=== PATIENT | female | born 2000 | race Caucasian/White ===

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

== ENCOUNTER 2024-07-08 09:36 | Inpatient (IN) | payer MEDICAID ==
[~2024-07-08] VITALS: Ht 170.2 cm; Wt 72.7 kg
[2024-07-08] VITALS (51 sets, daily range): BP systolic 72–135; BP diastolic 37–99; PULSE 69–99; TEMP 98.4–98.7
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
[2024-07-08] MEDS ORDERED: PRENATAL (09:59)
--- NOTE | 2024-07-08 10:15 | NUR ---
PLAN PER IS TO INDUCE LABOR OR PERFORM C/S FOR THIS PATIENT. DISCUSSED PLAN WITH PATIENT WHO WAS TEARFUL SHE DIDN'T UNDERSTAND WHAT WAS GOING ON. THIS RN DISCUSSED THE LOW RA, PATIENT VERBALIZED UNDERSTANDING. PT AGREES TO ADMISSION TO HOSPITAL AND WILL DECIDE WHAT PLAN TO MOVE FORWARD WITH AFTER ARRIVES TO DISCUSS THE RISKS AND BENEFITS WITH PATIENT. IV STARTED, LABS DRAWN FROM IV START AND SENT TO LAB, 1L OF LR BOLUSING FOR POTENTIAL C/S, SVE FT/80/-2. ADMISSION INTAKE COMPLETED, WILL HAVE PATIENT SIGN CONSENT FOR SURGERY OR PROCEDURE AFTER ARRIVES AND THE DECISION IS MADE. EFM IS CATEGORY 1 WITH ACCELS AND NO DECELS, BASELINE OF 125.
[2024-07-08] MEDS ORDERED: LR 1,000 ML IV PRN ×2 (10:30→19:45)
[2024-07-08] MEDS ORDERED: LR 1,000 ML IV SCH ×2 (10:30→11:45)
[2024-07-08 11:12] LABS: BASO # 0.1 K/mm3 (0.0-0.2); BASO % 0.6 % (0.0-2.0); EOS # 0.2 K/mm3 (0.0-0.7); EOS % 1.5 % (0.0-4.0); GRAN # 7.2 K/mm3 (1.4-6.5); GRAN % 72.4 % (42.2-75.2); HEMOGLOBIN 12.6 g/dl (12.5-16.0); LYMPH # 1.6 K/mm3 (1.2-3.4); LYMPH % 15.6 % (20.0-51.0); MEAN CELL VOLUME 89 fl (80.0-100.0); MEAN CORPUSCULAR HEMOGLOBIN 31 pg (27-31); MEAN CORPUSCULAR HGB CONC 34 g/dl (33.0-37.0); MEAN PLATELET VOLUME 11.9 fl (7.4-10.4); MONO # 0.9 K/mm3 (0.1-0.6); MONO % 8.7 % (1.7-9.3); PLATELET COUNT 169 K/mm3 (130-400); RED BLOOD COUNT 4.12 M/mm3 (4.10-5.30)
[2024-07-08 11:36] LABS: HEMATOCRIT 36.8 % (37.0-47.0)
[2024-07-08] MEDS ORDERED: miSOPROStol 25 MCG (1/4th of 100 MCG) TAB VG SCH (11:45)
[2024-07-08] MEDS ORDERED: LR & Oxytocin 500 ML IV SCH (11:45)
[2024-07-08] MEDS ORDERED: Terbutaline 1 MG/ML 1 ML AMP SQ PRN (11:45)
[2024-07-08 12:38] LABS: TRICYCLIC ANTIDEPRESS URINE NEGATIVE (NEGATIVE)
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
[2024-07-08] MEDS ORDERED: NS 30 ML IV ONE (18:44)
[2024-07-08] MEDS ORDERED: Oxytocin 10 UNITS/ML VIAL ONE (18:44)
[2024-07-08] MEDS ORDERED: Ketorolac 30 MG/ML VIAL ONE (18:44)
[2024-07-08] MEDS ORDERED: dexAMETHasone 10 MG/ML VIAL ONE (18:44)
[2024-07-08] MEDS ORDERED: Ondansetron 4 MG/2 ML VIAL ONE (18:44)
[2024-07-08] MEDS ORDERED: Phenylephrine 10 MG/ML VIAL ONE ×2 (18:45→18:48)
--- NOTE | 2024-07-08 18:49 | NUR ---
1810: AT BEDSIDE DISCUSSING RISKS/BENEFIT OF CONTINUED INDUCTION VS. C/S. OPPORTUNITY FOR QUESTIONS ASKED AND ANSWERED. PT AGREES TO MOVE FORWARD WITH A C/S. GUSTAVO MAGALLON IS AT BEDSIDE WITH THIS RN AND . BEDSIDE REPORT IS GIVEN, AND PT BEGINS TO BE PREPPED FOR C/S. ÁNGEL BROWN IS NOTIFIED OF PT DESIRE TO PROCEED WITH C/S. 1830: PT IS PREPPED AND READY TO GO BACK FOR C/S BY GUSTAVO MAGALLON AND GUSTAVO FALCON. ÁNGEL BROWN AT BEDSIDE TO DISCUSS PLANS FOR ANESTHESIA. 1849: PT AMBULATES FROM LR5 TO OR FOR C/S.
[2024-07-08] MEDS ORDERED: EPINEPHrine 1 MG/1 ML Ampule ONE (19:21)
[2024-07-08] MEDS ORDERED: Naloxone 0.4 MG/ML VIAL IV PRN (19:45)
[2024-07-08] MEDS ORDERED: Tdap Vaccine 0.5 ML SYRINGE IM SCH (19:45)
[2024-07-08] MEDS ORDERED: Measles/Mumps/Rubella Virus Vaccine Live w Diluent 0.5 ML VIAL SQ SCH (19:45)
[2024-07-08] MEDS ORDERED: Magnes Hydrox (MOM) 80 MG/ML 30 ML CUP PO PRN (19:45)
[2024-07-08] MEDS ORDERED: Acetaminophen 500 MG TAB PO SCH (19:45)
[2024-07-08] MEDS ORDERED: Ondansetron 4 MG/2 ML VIAL IV PRN (19:45)
[2024-07-08] MEDS ORDERED: oxyCODONE 5 MG TAB PO PRN (19:45)
[2024-07-08] MEDS ORDERED: Loratadine 10 MG TAB PO PRN (19:45)
[2024-07-08] MEDS ORDERED: traZODone 50 MG TAB PO PRN (21:00)
[2024-07-09] MEDS ORDERED: Ibuprofen 800 MG TAB PO SCH (01:39)
[2024-07-09 04:30] VITALS: BP 104/55; PULSE 80; TEMP 98.2
[2024-07-09] MEDS ORDERED: Sennosides/Docusate 8.6-50 MG TAB PO SCH (08:00)
[2024-07-09 08:40] VITALS: BP 113/77; PULSE 79
[2024-07-09] MEDS ORDERED: Prenatal Vitamins/Iron/FA TAB PO SCH (09:00)
[2024-07-09] MEDS ORDERED: Morphine 4 MG/ML VIAL IV PRN (10:00)
--- NOTE | 2024-07-09 10:08 | NUR ---
Initial visit attempt; Family resting, Asphalt Worker left card offering Congratulations and God's blessings for the of their son and information regarding the availability of Spiritual Care at [facility].
--- NOTE | 2024-07-09 13:53 | NUR ---
PT DOES NOT HAVE AN INCENTIVE SPIROMETER IN HER ROOM. DECLINES WANTING ONE.
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
[2024-07-09 17:00] VITALS: BP 117/68; PULSE 74
--- NOTE | 2024-07-09 18:40 | NUR ---
Note patient tearful at this time. When asked if everything is okay, patient significant other answers, "It's fine. She just needs to relax." Note patient mother out to nurse's station and tells this information writer patient significant other just told her she needed to stop eating because she is no longer eating for two, and that's why she is crying.
[2024-07-09 18:45] VITALS: BP 105/65; PULSE 92; TEMP 97.4
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
--- NOTE | 2024-07-09 19:51 | NUR ---
Patient mother tells this medical underwriter patient did not want to put father of baby on certificiate, as they are not . States father of baby grabbed the certificate first thing and started filling it out. Also reports patient wanted to name her baby Naresh, but father of baby was not agreeable to that.
--- NOTE | 2024-07-09 23:15 | NUR ---
Patient significant other off of unit at this time. This tag writer in to speak with patient. Encouraged that we are her safety net here. This tag writer asks if she feels she needs to create a safe word or safe phrase to clear the room. Patient declines. States, "He just made a stupid comment earlier about me eating too much and that's why I was crying. Sometimes my mom and Bernard just get into it and that makes it extra stressful for me." This tag writer tells patient will look for a resource/hotline for her to discreetly put in her purse in case she needs it outside of hospital.
[2024-07-10 01:59] VITALS: BP 109/64; PULSE 83; TEMP 98.2
--- NOTE | 2024-07-10 06:20 | NUR ---
REPORT FROM GUSTAVO ADAMS. INFORMED OF PATIENT CONCERNS AND WILL ATTEMPT TO TALK WITH THE PATIENT ALONE. SOCIAL WORK IS NOTIFIED OF ISSUES THAT AROSE DURING THE NIGHT.
[2024-07-10 09:03] VITALS: BP 109/74; PULSE 78
[2024-07-10] MEDS ORDERED: IBU800 M1 PO (09:17)
[2024-07-10] MEDS ORDERED: TYLENOL 500MG500 MG PO (09:18)
[2024-07-10] MEDS ORDERED: ROXICODONE 55 MG/TAB PO (09:18)
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
--- NOTE | 2024-07-10 15:45 | NUR ---
PT DISCHARGE INSTRUCTIONS GIVEN. ALL QUESTIONS ASKED WERE ANSWERED. PT BELONGINGS GATHERED AND ACCOUNTED FOR. THE PATIENT VERBALIZED UNDERSTANDING OF INFORMATION. PT STATES SHE FEELS GOOD TO GO HOME AND FEELS SAFE. PT AMBULATES OFF THE UNIT WITH [facility]IA [facility]FF. NO OTHER CONCERNS.
== END 2024-07-10 15:45 | disposition home or self-care (01) | DRG 788 ==
LOC: LDRO 09:36 → OB 10:33 → LDR 10:33 → OB 22:22
PROVIDERS: Obstetrics & Gynecology; ADMIT Obstetrics & Gynecology
PROC: 10D00Z1 Extraction of Products of Conception, Low, Open Approach (ICD-10-PCS; principal; 2024-07-08)
PROC: 3E0P7VZ Introduction of Hormone into Female Reproductive, Via Natural or Artificial Opening (ICD-10-PCS; 2024-07-08)
PROC: 3E033VJ Introduction of Other Hormone into Peripheral Vein, Percutaneous Approach (ICD-10-PCS; 2024-07-08)
PROC: 3E033VJ Introduction of Other Hormone into Peripheral Vein, Percutaneous Approach (ICD-10-PCS; 2024-07-08)
DX: O41.03X0 Oligohydramnios, third trimester, not applicable or unspecified (principal); O77.9 Labor and delivery complicated by fetal stress, unspecified; Z3A.39 39 weeks gestation of pregnancy; Z37.0 Single live birth; Z79.899 Other long term (current) drug therapy; O69.81X0 Labor and delivery complicated by cord around neck, without compression, not applicable or unspecified
CPT/HCPCS: A9284; J0171; J0665; J0690; J1100; J1885; J2270; J2371; J2405; J2590; J7120